=== PATIENT | male | born 1940 | race Caucasian/White ===

== ENCOUNTER 2017-04-25 13:02 | Emergency (ER) | payer OTHER, BC ==
[~2017-04-25] VITALS: Ht 185.4 cm; Wt 117.2 kg
[2017-04-25 14:13] VITALS: BP 130/66
== END 2017-04-25 14:23 | disposition home or self-care (01) ==
LOC: EME 13:02
DX: S83.91XA Sprain of unspecified site of right knee, initial encounter (principal); W18.30XA Fall on same level, unspecified, initial encounter; Y93.H9 Activity, other involving exterior property and land maintenance, building and construction; Y92.008 Other place in unspecified non-institutional (private) residence as the place of occurrence of the external cause; I10 Essential (primary) hypertension; E11.9 Type 2 diabetes mellitus without complications; Z87.891 Personal history of nicotine dependence
CPT/HCPCS: 73564; 99281; 99283